=== PATIENT | female | born 2000 | race Two or more races ===

== ENCOUNTER 2023-02-23 15:43 | Outpatient (CLI) | payer OTHER | END 2023-02-23 17:10 | disposition home or self-care (01) | LOC: PRENATAL 15:43 | PROVIDERS: ATTEND Obstetrics & Gynecology Maternal & Fetal Medicine | DX: O35.9XX0 Maternal care for (suspected) fetal abnormality and damage, unspecified, not applicable or unspecified (principal); O35.3XX0 Maternal care for (suspected) damage to fetus from viral disease in mother, not applicable or unspecified; O99.280 Endocrine, nutritional and metabolic diseases complicating pregnancy, unspecified trimester; Z3A.22 22 weeks gestation of pregnancy ==

== ENCOUNTER 2023-05-06 15:45 | Outpatient (CLI) | payer OTHER | END 2023-05-06 16:30 | disposition home or self-care (01) | LOC: PRENATAL 15:45 | PROVIDERS: ATTEND Obstetrics & Gynecology Maternal & Fetal Medicine | DX: O26.849 Uterine size-date discrepancy, unspecified trimester (principal); O36.8199 Decreased fetal movements, unspecified trimester, other fetus; O99.280 Endocrine, nutritional and metabolic diseases complicating pregnancy, unspecified trimester; Z3A.32 32 weeks gestation of pregnancy ==